=== PATIENT | female | born 1995 | race Caucasian/White ===

== ENCOUNTER 2017-05-15 11:44 | Emergency (ER) | payer OTHER, MEDICAID ==
[~2017-05-15] VITALS: Ht 172.7 cm; Wt 46.5 kg
[~2017-05-15 11:44] MED LIST: ABIL15TA2 PO; CLIN1CAP5 PO; GRIS125S2 TOPICAL; METH2.5 PO
[2017-05-15 12:06] VITALS: BP 115/67; PULSE 130; RESP 18; TEMP 98; O2SAT 98
[2017-05-15] MEDS ORDERED: ABIL15TA2 PO (12:06)
[2017-05-15] MEDS ORDERED: ARIP1TAB5 PO (12:30)
[2017-05-15] MEDS ORDERED: LORA-474 PO (12:30)
--- NOTE | 2017-05-15 12:30 | PD ---
HPI Chief Complaint: Psychiatric Symptoms Time Seen by Provider: 12:12 Travel History International Travel<30 days: No Contact w/Intl Traveler<30days: No Traveled to known affect area: No History of Present Illness HPI The patient is a 22-year-old female who presents to the emergency department with her mother for evaluation of anxiety. The patient has a history of autism with Aspergers disease and secondary anxiety. The patient was being evaluated by a psychiatrist in [place], however, they have not seen a psychiatrist in several months. The patient was on Abilify 10 mg twice a day and was taken off the Abilify several months ago. They now notes that the patient has had increasing anxiety throughout the day. The mother states the patient will grab her arm as well as grab her arm while driving. I discussed the patient with the father over the phone who states the patient has an appointment next with their physician who will continue to prescribe her the Abilify. They are requesting Abilify and some other short term anxiety medication for the patient until she can be evaluated. The patient lives with the family, they state that she is not a threat to herself or others. The patient denies any physical complaints, repetitively tells her mother that she will behave. PFSH Past Medical History Arthritis: Yes (rheumatoid) Autoimmune Disease: Yes (RHEUMATOID ARTHRITIS) Anxiety: Yes Diminished Hearing: No Musculoskeletal: Yes Neurologic: Yes (AUTISTIC) Immunizations Current: Yes (utd, per dad) Thyroid Disease: Yes Influenza Vaccination: No ?: Not LMP: TWO WEEKS AGO Social History Alcohol Use: No Tobacco Use: No Substance Use: No Allergies-Medications (Allergen,Severity, Reaction): Coded Allergies: milk (Unverified Allergy, Mild, 05/13/17) peanut (Unverified Allergy, Mild, 05/13/17) soybean (Unverified Allergy, Mild, 05/13/17) egg (Unverified Allergy, Unknown, 05/13/17) shellfish derived (Unverified Allergy, Unknown, 05/13/17) Reported Meds & Prescriptions Reported Meds & Active Scripts Active Reported Abilify (Aripiprazole) 15 Mg Tab 15 Mg PO DAILY Review of Systems Except as stated in HPI: all other systems reviewed are Neg Neurologic: Positive: Other (autism wit Aspergers ) Psychiatric: Positive: Anxiety Physical Exam Narrative GENERAL: Awake, alert, 22 year-old female appears her stated age and is in no acute respiratory distress. The patient is restless and fidgety during examination. SKIN: Focused skin assessment warm/dry. HEAD: Atraumatic. Normocephalic. EYES: Pupils equal and round. No scleral icterus. No injection or drainage. ENT: No nasal bleeding or discharge. Mucous membranes pink and moist. NECK: Trachea midline. No JVD. CARDIOVASCULAR: Regular, tachycardic with a heart rate over 5. RESPIRATORY: No accessory muscle use. Clear to auscultation. Breath sounds equal bilaterally. MUSCULOSKELETAL: No obvious deformities. No clubbing. No cyanosis. No edema. Hair growth over the legs noted. NEUROLOGICAL: Awake and alert. No obvious cranial nerve deficits. Motor grossly within normal limits. Normal speech. Patient does fidget and will not sit on the bed for prolonged period of time. PSYCHIATRIC: Anxious. Data Data Last Documented VS Vital Signs Date Time Temp Pulse Resp B/P Pulse Ox O2 Delivery O2 Flow Rate FiO2 05/15/17 12:06 98.0 130 18 115/67 98 MDM Medical Decision Making Medical Screen Exam Complete: Yes Emergency Medical Condition: Yes Medical Record Reviewed: Yes Differential Diagnosis Differential diagnosis includes autism, Asperger's, anxiety, ODD, ADD, ADHD, mood disorder. Narrative Course I do discussion with the mother in the room and the father on the phone regarding the patient's current symptoms and previous treatment modalities. They are requesting the patient be placed back on Abilify and maybe a short term medication for her anxiety. They state the patient is not a threat to herself or themselves. The patient does live in a safe environment with the family. The patient does have an appointment next with their physician , therefore, I will write for the Abilify as well as some Ativan for the short duration. The mother is comfortable with this plan of care and the father, via phone, is comfortable with this plan of care. Diagnosis Primary Impression: Asperger's disorder Additional Impression: Anxiety Patient Instructions: General Instructions Additional Instructions: Medications as directed. Follow-up with your physician. Follow-up with psychiatry as symptoms persist. Return if symptoms worsen or progress. Med/Other Pt SpecificInfo: Prescription(s) given Scripts Lorazepam (Ativan)1 Mg Tab1 Mg PO Q6H PRN (ANXIETY AND/OR AGITATION) #20 TAB Ref 0 Prov:Tank Wilde MD 05/15/17 Aripiprazole (Abilify)10 Mg Tab10 Mg PO BID #60 TAB Ref 0 Prov:Tank Wilde MD 05/15/17 Disposition: 01 DISCHARGE HOME Condition: Stable Tank Wilde MD May 15, 2017 12:30
== END 2017-05-15 12:40 | disposition home or self-care (01) ==
LOC: PHED 11:44
DX: F84.5 Asperger's syndrome (principal); F41.9 Anxiety disorder, unspecified
CPT/HCPCS: 99284